=== PATIENT | female | born 1975 | race Caucasian/White ===

== ENCOUNTER 2021-08-18 17:18 | Inpatient (IN) ==
[2021-08-18] MEDS ORDERED: Ondansetron 4 MG/2 ML VIAL IVP PRN (20:45)
[2021-08-18] MEDS ORDERED: Acetaminophen 325 MG TABLET PO PRN (20:45)
[2021-08-18] MEDS ORDERED: Naloxone 0.4 MG/ML INJ IVP PRN (20:45)
[2021-08-18] MEDS ORDERED: MOM Conc 10 ML UD.LIQ PO PRN (20:45)
[2021-08-18] MEDS ORDERED: Melatonin 3 MG TABLET PO PRN (20:45)
[2021-08-18] MEDS ORDERED: Ipratropium/Albuterol Neb 3 ML IH PRN (22:54)
[2021-08-18 23:32] LABS: Magnesium 2.2 mg/dL (1.6-2.6); Phosphorous 3.3 mg/dL (2.7-4.5)
[2021-08-18] MEDS ORDERED: GuaiFENesin Liq 200 MG/10 ML UDC PO PRN (23:45)
[2021-08-19 01:20] LABS: Basophils % 0.4 %; Hematocrit 46.2 % (35.3-44.9); Hemoglobin 14.5 g/dL (11.5-15.4); Immature Granulocytes % 0.4 % (0-4); Lymphocytes # 0.7 K/mcL (0.6-4.6); Lymphocytes % 14.1 %; Mean Corpuscular HGB Conc 31.4 g/dL (31.6-35.5); Mean Corpuscular Hemoglobin 28.8 pg (28.0-33.3); Mean Corpuscular Volume 91.7 fL (83.0-100.0); Mean Platelet Volume 11.3 fL (9.4-12.4); Monocytes # 0.3 K/mcL (0.0-1.3); Monocytes % 5.9 %; Neutrophils # 4.2 K/mcL (1.6-8.9); Platelet Count 237 K/mcL (140-400); Red Blood Count 5.04 M/mcL (3.82-4.97); Red Cell Distribution Width 13.9 % (11.5-14.5); Segmented Neutrophils % 79.2 %; White Blood Count 5.2 K/mcL (4.3-11.1)
[2021-08-19] MEDS ORDERED: Remdesivir 200 MG in 0.9 % Sodium Chloride 100 ML IVPB ONE (01:26)
[2021-08-19] MEDS: Ipratropium 1 PUFF INHALER IH SCH ×7 (01:52→23:49)
[2021-08-19 02:05] LABS: Albumin 3.7 g/dL (3.5-5.7); Albumin/Globulin Ratio 1.2 (1.1-2.2); Bilirubin,Direct 0.1 mg/dL (0.0-0.2); Bilirubin,Indirect 0.5 mg/dL (0.0-1.0); Bilirubin,Total 0.6 mg/dL (0.3-1.0); Globulin 3.1 g/dL (2.4-3.5); Total Protein 6.8 g/dL (6.4-8.9)
[2021-08-19 02:12] LABS: Magnesium 2.2 mg/dL (1.6-2.6); Phosphorous 3.3 mg/dL (2.7-4.5)
[2021-08-19 03:33] LABS: Hepatitis B Surface Antigen Nonreactive (Nonreactive)
[2021-08-19 04:02] LABS: Hepatitis C Virus Antibody Nonreactive (Nonreactive)
[2021-08-19 04:03] LABS: Hepatitis B Core IgM Nonreactive (Nonreactive)
[2021-08-19 04:04] LABS: Hepatitis A Antibody IgM Nonreactive (Nonreactive)
[2021-08-19] MEDS: *HR* Enoxaparin 40 MG/0.4 ML SYRINGE SQ SCH (04:59)
[2021-08-19] MEDS: dexAMETHasone 4 MG TABLET PO SCH (09:23)
[2021-08-19] MEDS ORDERED: Benzonatate 100 MG CAPSULE PO PRN (12:25)
[2021-08-19] MEDS ORDERED: Dextrose Gel 15 GM/37.5 ML TUBE PO PRN ×2 (16:35)
[2021-08-19] MEDS ORDERED: D5% in Water 1,000 ML IVC PRN (16:35)
[2021-08-19] MEDS ORDERED: *HR* Dextrose 50 % in Water (Syg) 50 ML SYRINGE IVP PRN (16:35)
[2021-08-19] MEDS: Insulin LISPRO 300 UNITS/3 ML VIAL SUBQ SCH (18:11)
[2021-08-20] MEDS ORDERED: Remdesivir 200 MG in 0.9 % Sodium Chloride 100 ML IVPB ONE (01:00)
[2021-08-20] MEDS ORDERED: Remdesivir 100 MG in 0.9 % Sodium Chloride 100 ML IVPB SCH (01:00)
[2021-08-20] MEDS: Ipratropium 1 PUFF INHALER IH SCH ×4 (04:01→16:31)
[2021-08-20] MEDS: *HR* Enoxaparin 40 MG/0.4 ML SYRINGE SQ SCH ×2 (06:06→06:38)
[2021-08-20] MEDS: Insulin LISPRO 300 UNITS/3 ML VIAL SUBQ SCH ×2 (07:19→12:27)
[2021-08-20] MEDS: dexAMETHasone 4 MG TABLET PO SCH (08:01)
[2021-08-20 08:27] LABS: Basophils % 0.2 %; Hematocrit 45.2 % (35.3-44.9); Hemoglobin 14.5 g/dL (11.5-15.4); Immature Granulocytes % 0.5 % (0-4); Lymphocytes # 1.8 K/mcL (0.6-4.6); Lymphocytes % 27.2 %; Mean Corpuscular HGB Conc 32.1 g/dL (31.6-35.5); Mean Corpuscular Hemoglobin 29.1 pg (28.0-33.3); Mean Corpuscular Volume 90.6 fL (83.0-100.0); Mean Platelet Volume 10.9 fL (9.4-12.4); Monocytes # 0.8 K/mcL (0.0-1.3); Monocytes % 11.6 %; Platelet Count 232 K/mcL (140-400); Red Blood Count 4.99 M/mcL (3.82-4.97); Segmented Neutrophils % 60.5 %; White Blood Count 6.5 K/mcL (4.3-11.1)
[2021-08-20 08:42] LABS: Alanine Aminotransferase 62 Units/L (7-52); Albumin 3.7 g/dL (3.5-5.7); Albumin/Globulin Ratio 1.2 (1.1-2.2); Alkaline Phosphatase 89 Units/L (34-104); Aspartate Amino Transferase 44 Units/L (13-39); BUN/Creatinine Ratio 18 (6-26); Bilirubin,Direct 0.1 mg/dL (0.0-0.2); Bilirubin,Indirect 0.5 mg/dL (0.0-1.0); Bilirubin,Total 0.6 mg/dL (0.3-1.0); Blood Urea Nitrogen 14 mg/dL (6-20); Calcium 8.7 mg/dL (8.6-10.3); Carbon Dioxide 28 mEq/L (23-29); Chloride 105 mEq/L (98-107); Globulin 3.1 g/dL (2.4-3.5); Glucose 124 mg/dL (70-105); Magnesium 2.1 mg/dL (1.6-2.6); Osmolality,Calculated 294 (280-300); Phosphorous 2.8 mg/dL (2.7-4.5); Potassium 3.2 mEq/L (3.5-5.1); Sodium 141 mEq/L (136-145); Total Protein 6.8 g/dL (6.4-8.9); eGFR For African Americans > 60 (> 60); eGFR For Non-African Americans > 60 (> 60)
[2021-08-20] MEDS: Potassium Chloride Elixir 20 MEQ/15 ML UDC PO ONE ×2 (10:23→10:30)
[2021-08-20 10:52] LABS: Estimated Average Glucose 146 mg/dl; Hemoglobin A1C 6.7 %
[2021-08-20 11:00] VITALS: BP 110/75; PULSE 75; TEMP 97.5
[2021-08-20 18:08] VITALS: O2SAT 94
== END 2021-08-20 16:53 | disposition home or self-care (01) | DRG 137 ==
LOC: 3BNU → SUATTDRO 19:29
PROVIDERS: ADMIT Internal Medicine; ATTEND Internal Medicine